=== PATIENT | female | born 1995 | race Caucasian/White ===

== ENCOUNTER → 2020-11-17 09:40 | Outpatient (CLI) | payer SELFPAY ==
[2020-11-17 10:57] LABS: HCG Quantitative /Beta subunit < 2.4 mIU/mL
== END ==
PROVIDERS: PCP Obstetrics & Gynecology; Referring Provider Obstetrics & Gynecology; Visit Provider Obstetrics & Gynecology
DX: N91.2 Amenorrhea, unspecified (principal)
CPT/HCPCS: 36415; 84702